=== PATIENT | female | born 1975 | race Two or more races ===

== ENCOUNTER → 2024-08-08 | Outpatient (CLI) | payer MEDICAID, SELFPAY ==
--- NOTE | 2024-08-08 14:00 | XR_ITS ---
Examination: Breast ultrasound, unilateral, right complete Date and time of exam: August 08, 2024 1448 hours INDICATIONS: Mammogram June 02, 2023 BI-RADS 2, right breast sonogram June 29, 2023 right axillary lymph node 3.6 cm Technique: Real-time alfonso scale ultrasonographic imaging performed right breast including all 4 quadrants as well as nipple retroareolar and axillary region. Findings: 8:00 oval mass circumscribed 4 x 3 x 6 mm 9:00 oval mass circumscribed 4 x 2 x 4 mm Right axillary lymph node 3.9 x 0.7 x 3.7 cm IMPRESSION: BI-RADS 3: Probably benign findings Recommend 1 additional 6 month right breast axillary sonography to document stability of enlarged right axillary left
--- NOTE | 2024-08-08 15:06 | XR_ITS ---
Examination: Diagnostic digital mammography, bilateral Computer aided detection 3-D breast Tomosynthesis, bilateral Date and time of exam: August 08, 2024 1508 hours Compared to mammograms dating to June 27, 2019 INDICATIONS: Enlarged axillary lymph node, right breast on right breast sonogram June 29, 2023 Technique: Nonmagnified MLO, CC views of the breasts to been obtained, reconstructed from 3-D Tomosynthesis images. R2 computer aided detection program utilized for evaluation of suspicious masses and/or abnormal calcifications. 3-D Tomosynthesis images obtained. Findings: The breasts are heterogeneously dense, which may obscure small masses Skin lesion left breast No interval suspicious masses Impression: BI-RADS Category 2: Benign findings Recommend yearly follow-up mammography.
== END | disposition home or self-care (01) ==
PROVIDERS: PCP Nurse Practitioner Family; Referring Provider Nurse Practitioner Family; Visit Provider Nurse Practitioner Family
DX: R92.323 Mammographic fibroglandular density, bilateral breasts (principal); R59.0 Localized enlarged lymph nodes
CPT/HCPCS: 76641; 77062; 77066; G0279

== ENCOUNTER → 2025-05-24 | Outpatient (CLI) | payer MEDICAID, SELFPAY ==
--- NOTE | 2025-05-24 14:00 | XR_ITS ---
Examination: Breast ultrasound, unilateral, right complete Date and time of exam: May 24, 2025 1402 hours INDICATIONS: Enlarged right axillary lymph node 3.9 x 3.7 cm with 8:00 and 9:00 nodules on breast sonogram August 08, 2024 Technique: Real-time alfonso scale ultrasonographic imaging performed right breast including all 4 quadrants as well as nipple retroareolar and axillary region. Findings: 8:00 nodule lobular margins 4 x 4 millimeter Stable right axillary lymph node 3.4 x 2.2 cm IMPRESSION: BI-RADS Category 2: Benign findings
== END | disposition home or self-care (01) ==
LOC: CDIM 13:47
PROVIDERS: PCP Physician Assistant; Referring Provider Physician Assistant; Visit Provider Physician Assistant
DX: N63.13 Unspecified lump in the right breast, lower outer quadrant (principal)
CPT/HCPCS: 76641